=== PATIENT | male | born 1945 | race Caucasian/White ===

== ENCOUNTER 2018-10-25 18:32 | Inpatient (IN) | payer OTHER ==
[~2018-10-25] VITALS: Ht 165 cm; Wt 76.7 kg
[2018-10-25 18:38] VITALS: BP 139/85
--- NOTE | 2018-10-25 19:17 | NUR ---
PT IS WANDERING, UP IN ROOM, CLOTHES REMOVED, AND LOCKED UP, SITTER WITH PT, CONCERNED ABOUT POSSIBILITY OF FLIGHT RISK
[2018-10-25 19:20] LABS: URINE BILIRUBIN NEGATIVE (Negative); URINE BLOOD NEGATIVE (Negative); URINE CLARITY CLEAR; URINE COLOR YELLOW; URINE GLUCOSE-RANDOM* NEGATIVE (Negative); URINE KETONES NEGATIVE (Negative); URINE LEUKOCYTES-REFLEX NEGATIVE (Negative); URINE NITRITE-REFLEX NEGATIVE (Negative); URINE PROTEIN (DIPSTICK) NEGATIVE (Negative); URINE SPECIFIC GRAVITY 1.025 (1.005-1.035); URINE UROBILINOGEN 0.2 E.U./dl (0.2-1.0)
[2018-10-25 19:35] LABS: AMP/METHAMP Negative (Negative); BARBITURATES Negative (Negative); BENZODIAZEPINES POSITIVE (Negative); COCAINE Negative (Negative); METHADONE Negative (Negative); OPIATES Negative (Negative); PCP Negative (Negative)
[2018-10-25 20:10] LABS: BASOPHILS 0.7 % (0.0-2.0); EOSINOPHILS 0.5 % (0.0-3.0); HEMATOCRIT 42.3 % (42.0-52.0); HEMOGLOBIN 14.3 gm/dL (14.0-18.0); LYMPHOCYTES 16.3 % (24.0-44.0); MCH 28.4 pg (26.0-34.0); MCHC 33.7 g/dL (28.0-37.0); MCV 84.1 fL (80.0-100.0); MONOCYTES 7.5 % (1.0-8.0); PLATELET COUNT 177 thou/uL (150-400); RBC 5.04 mil/uL (4.50-6.00); RDW 15.8 % (10.5-14.5); WBC 10.7 thou/uL (4.0-11.0)
[2018-10-25 20:20] LABS: ANION GAP 9 mmol/L (7-16); BUN 23 mg/dL (7-18); CALCIUM 8.9 mg/dL (8.5-10.1); CHLORIDE 101 mmol/L (98-107); CO2 26 mmol/L (21-32); CREATININE 1.2 mg/dL (0.7-1.3); GLUCOSE 104 mg/dL (74-106); POTASSIUM 4.2 mmol/L (3.5-5.1); SODIUM 136 mmol/L (136-145)
[2018-10-25 20:29] LABS: ALBUMIN 3.4 g/dL (3.4-5.0); SGOT 20 U/L (15-37); SGPT 21 U/L (30-65); TOTAL BILIRUBIN 0.5 mg/dL (<0.1-1.0); TOTAL PROTEIN 7.7 g/dL (6.4-8.2); TROPONIN-I <0.06 ng/mL (<0.06)
[2018-10-25] MEDS ORDERED: XARELTO10 MG PO (20:44)
[2018-10-25] MEDS ORDERED: OLANZAPINE2.5 MG PO (20:44)
[2018-10-25] MEDS ORDERED: ZOLOFT50 MG PO (20:45)
--- NOTE | 2018-10-26 08:31 | EKG ---
[place] [address] [facility] [place] [address] ELECTROCARDIOGRAM REPORT Name: KIRKPATRICK,AUGUSTUS Room #: [facility] [id number] ������������������ Admission: 10/25/18 ������������������ Attend Phys: Discharge: ������������������ Date of : 43 Report #: [id number] ����������������������������������������������������������������� [id number] THIS REPORT FOR: //name// [facility] ED Test Date: 2018-10-25 Test Time: 19:33:19 Pat Name: AUGUSTUS KIRKPATRICK Department: Room: Gender: M Team Automobile Assembler: rashad : 1945 Requested By: Francie Lozano Order Number: [id number] MD: Daquan Booth Measurements Intervals [place] Rate: 69 P: 58 MT: 183 QRS: 12 QRSD: 95 T: 96 QT: 436 QTc: 467 Interpretive Statements Sinus rhythm Probable left atrial enlargement Borderline repolarization abnormality Minimal ST elevation, inferior leads No previous ECG available for comparison Electronically Signed On 10-26-2018 8:31:13 CDT by Daquan Booth [email or web address] ��������������������������������������������� <ELECTRONICALLY SIGNED> ���������������������������������������� By: Daquan Booth MD ��������������������������������������������� 10/26/18 0831 1932 32 Daquan Booth MD /CELE
[2018-10-26] MEDS ORDERED: XANAX 0.25 MG0.25 MG PO (10:59)
[2018-10-26] MEDS ORDERED: FLOMAX0.4 MG PO (11:00)
[2018-10-26] MEDS ORDERED: COLACE100 MG PO (11:00)
[2018-10-26] MEDS ORDERED: TRAZODONE HCL50 MG PO (11:01)
[2018-10-26] MEDS ORDERED: TYLENOL325 MG PO (11:03)
[2018-10-26] MEDS ORDERED: CALMOSEPTINE O3.5 GM TOP (11:05)
[2018-10-26] MEDS ORDERED: ZYPREXA2.5 MG PO (11:06)
[2018-10-26] MEDS ORDERED: HYDROXYZINE HCL25 M2 PO (11:07)
[2018-10-26 12:17] VITALS: BP 147/52
[2018-10-26] MEDS ORDERED: NYSTATIN15 G3 TOP (12:55)
[2018-10-26 14:22] VITALS: BP 180/85
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
[2018-10-26 19:33] VITALS: BP 125/70
[2018-10-26 19:48] VITALS: BP 98/77
--- NOTE | 2018-10-27 02:23 | NUR ---
QUIET AND COOPERATIVE FOR CARE, RESTED GOOD, WOKE UP AT ONE POINT AND FOUND KNEELING, SAID HE IS PRAYING, ABLE TO ASSIST BACK TO BED, TOOK MEDS WITH NO ISSUES, UP ADLIB, GAIT STEADY, NO SOB NOTED, VOIDING, MONITORED.
[2018-10-27 07:30] VITALS: BP 97/56
--- NOTE | 2018-10-27 07:50 | NUR ---
PT UP IN HALLWAY AND WANTED ANALYTIC PROGRAMMER TO THROW AWAY BROWN BAG FROM ROOM. HE SAID YOU BETTER THROW IT AWAY OR ELSE. PT WAS EASILY DIRECTED TO DINNING ROOM.
[2018-10-27 10:34] VITALS: BP 97/56
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
[2018-10-27 14:39] VITALS: BP 97/56
--- NOTE | 2018-10-27 16:00 | NUR ---
NOTICED PT IS EXIT SEEKING. CHECKING DOORS ON WEST SIDE AND LEERKING AROUND HALLS.
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
[2018-10-27 19:53] VITALS: BP 141/63
--- NOTE | 2018-10-27 22:30 | NUR ---
ASSUMED CARE OF THE PT AT 1915PM. THE PT WAS UP WALKING AROUND THE HALLWAY WHEN THIS COUNTY ATTORNEY CAME ON DUTY. HE TOOK HIS MEDICATIONS WITHOUT ANY DIFFICULTY. DENIES ANXIETY AND DEPRESSION. DENIES RACING THOUGHTS AND NIGHTMARES. REMAINS ON 12 MINUTE CHECKS FOR HIS SAFETY.
--- NOTE | 2018-10-28 04:01 | NUR ---
THE PT WOKE UP AND WALKED UP AND DOWN THE HALLWAY THIS MORNING. HE TRIED TO GO TO THE BATHROOM, HE WAS FINALLY ABLE TO VOID AFTER TRYING 3 TIMES. HE WAS CONFUSED WHEN HE FIRST WOKE UP AND THEN WENT BACK TO BED.
--- NOTE | 2018-10-28 05:58 | NUR ---
THE PT SLEPT 7 HOURS LAST NIGHT.
--- NOTE | 2018-10-28 10:38 | NUR ---
GEOVANNA called in left a voicemail for pt son Filippo concerning the psychosocoial assessment. GEOVANNA provided contact information, and requested a phone at his earliest convienence.
--- NOTE | 2018-10-28 12:14 | NUR ---
PATIENT CALM AND AGREEABLE. STATED UNDERSTANDS HAS TEMPER AND REALIZES NEEDS TO CONTROL - FEELS MUCH BETTER - STATES MEDICATIONS AND GROUPS HAS BEEN HELPFUL. HAD BEEN UTILIZING BATHROOM OFTEN - VERY CONFUSED - NEEDS REDIRECTION OFTEN. DENIES ANY S/I - NEEDS TO BE REMINDED ABOUT USE OF WALKER - WANDERS AWAY FROM IT OFTEN. CURRENTLY UP ON -
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
[2018-10-28 20:44] VITALS: BP 155/88
[2018-10-28 22:42] VITALS: BP 155/88
[2018-10-28 22:46] VITALS: BP 155/88
--- NOTE | 2018-10-29 03:28 | NUR ---
PT RESTLESS,PACING EARLY IN EVENING. INTERACTING WITH SELECTED PEERS. MEMORY IMPAIRED HE HAS TROUBLE WITH EVEN SIMPLE REDIRECTION. TESTING LIMITS. STATED SEVERAL TIMES THAT HE WAS NOT STAYING,AND "YOU CAN'T KEEP ME HERE". ADVISED THAT IF HE BEHAVES APPROPRIATLY HE WOULD NOT NEED TO STAY LONG. UNABLE TO UNDERSTAND OR REMEMBER WHAT BEHAVIOR GOT HIM ADMITTED. ASKING PERIODICALLY TO WHERE HIS IS. EVENTUALLY SETTLED AND WENT TO ROOM AT 2300. SLEEPING AT THIS TIME.
[2018-10-29 07:50] VITALS: BP 158/84
[2018-10-29 15:35] VITALS: BP 158/54
--- NOTE | 2018-10-29 15:54 | NUR ---
ASSUMED PATIENT CARE AT 0700. PATIENT UP FOR BREAKKFAST, ATE 100%; ALSO ATE 100% OF LUNCH. AT TIMES, AMBULATES WITHOUT WALKER. FORGETFUL, CANNOT REMEMBER THAT HE IS SUPPOSED TO USE AT ALL TIMES WHEN AMBULATING . OCCASSIONALLY ATTEMPTS TO GO INTO OTHER PATIENTS ROOMS. NO NEW ORDERS THIS SHIFT. LABILE MOOD, NO BEHAVIOR ISSUES TO DATE THIS SHIFT, CALM AFFECT. CONTINUE TO MONITOR.
[2018-10-29 19:26] VITALS: BP 160/75
--- NOTE | 2018-10-30 02:19 | NUR ---
VISIBLE IN DAYROOM UPON INITAL ASSESSMENT THIS PM-SITTING QUIETLY WITH PEERS AND APPEARS TO BE WATCHING TV-LITTLE NOTED INTERACTION WITH STAFF OR PEERS-NEUTRAL AFFECT-WILL OCCASSIONALY GET UP AND WANDERING IN HALLWAYS-PUSHING ON EXIT DOORS-WHEN REDIRECTED STATES "I NEED TO BE GOING HOME FOR THE NIGHT" DOES REDIRECT WITH VERBAL PROMPTS-REORIENTATION BUT WITHIN 10-15 MINUTES WILL AGAIN GO TO EXIT DOOR STATING HE NEEDED TO LEAVE-COOPERATIVE WITH HS MEDS AND ASSESSMENT-DENIES C/O PAIN OR DISCOMFORT- DESCRIBES OVERALL MOOD " A LITTLE UPSET BUT I WILL BE OK ONCE I GET HOME" GAIT APPEARS STEADY WITHOUT ASSISTIVE DEVICES-DID GO TO ROOM AND COMPLETE HS CARES WITH VERBAL QUEING/SUPERVISION AT APPROX 2145.
[2018-10-30 08:00] VITALS: BP 180/89
--- NOTE | 2018-10-30 08:08 | NUR ---
PT GIVEN AM MEDS. NOTICED PT CHEEKING MEDS AND SPITTING OUT PILLS AND PLACING BETWEEN COUCH SEAMS. PT THEN SWALLOWED MEDS WITH NURSE STAND-BY. KEEPS TO SELF. AMBULATES WITH STEADY GAIT WITHOUT WALKER.
[2018-10-30 10:05] VITALS: BP 180/89
--- NOTE | 2018-10-30 13:24 | NUR ---
PT UP CHECKING LOCKED DOORS. UP WONDERING AROUND.
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
--- NOTE | 2018-10-30 14:45 | NUR ---
PT DIDN'T WANT TO GO TO GROUP. PT UP WALKING AROUND IN [place] AND INTO OTHER PT ROOMS. NOTICED HE HAD ON A PAIR OF SHOES THAT WAS NOT HIS AND TAKING MEMBRENO OUT OF ROOMS.
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
--- NOTE | 2018-10-30 18:05 | NUR ---
ADM ZYPREXA 5MG PO FOR AGGITATION. PT TOOK MED WITH WATER, DIDN'T HIDE MED IN MOUTH.
[2018-10-30 20:30] VITALS: BP 119/74
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
--- NOTE | 2018-10-31 10:22 | NUR ---
ASSUMED PATIENT CARE AT 0700. PATIENT LYING IN BED AT THAT TIME. UP FOR BREAKFAST. HOWEVER, PATIENT WOULD NOT PUT PAJAMA BOTTOMS ON, AND REFUSED TO LET THIS NURSE HELP HIM DO SO. SAID THAT HE WOULD DO IT HIMSELF. HE CAME TO THE D.R. WITH T-SHIRT ON AND ONLY BRIEFS ON HIS BOTTOM. REFUSED TO GO TO HIS ROOM TO FINISH GETTING DRESSED. FLAT AFFECT; CONFUSED MOOD AND AT TIMES VERBALLY ABUSIVE, EVIDENCED BY SPEAKING IN A BELLIGERENT TONE OF VOICE TO STAFF.
--- NOTE | 2018-10-31 12:24 | NUR ---
Date of Admission: 10/26/18 Date of Activity Therapy Assessment:10/29/18 Activity Goal: 1 group per day Initial Goal: Develop and state at least two positive coping skills to aid in frustration tolerance and impulse control. Weekly progress towards goal: On track Group participation level: Moderate Behaviors observed:Pt shows aggitation, at times. Redirection is needed. Pt shows appropraite social skills during groups, but struggles with social skills in the [place]. Pt has been seen making threats and raising his vocie towards peers. Plan: No change towards goal
[2018-10-31 20:30] VITALS: BP 124/75
--- NOTE | 2018-11-01 01:56 | NUR ---
SITTING IN DAYROOM UPON INITIAL ASSESSMENT THIS PM- RELAXED FACIAL EXPRESSION AND BODY LANGUAGE-RESPONDS TO GREETING FROM STAFF [id number]-EVSMLG COMPLAINTS OR CONCERNS STATING HE FEELS "PRETTY GOOD" GAIT IS NOTED TO BE STEADY WITHOUT ASSISTIVE DEVICES. DID GET UP X 1 AND WANDERED IN HALLWAY-CHECKED EXIT DOOR X 1 BUT DID NOT ENTER PEERS ROOMS PREVIOUS PM. ORIENTED TO PERSON ONLY-RESPONDING THAT HE BELIEVES HE IS IN "THAT OFFICE BUILDING" DENIES C/O PAIN/DISCOMFORT. AFFECT CONSTRICTED -GENERAL MOOD CALM WITH SIGNIFICANT IMPROVEMENT IN AGITATION/RESTLESSNESS FROM LAST PM. WAS RESISTIVE WITH TAKING HS MEDICATIONS-PUSHING THE PILL CUP AWAY INITALLY STATING "THESE ARN'T MINE I THINK THEY ARE YOURS"DID PUT THEM IN MOUTH WITH COAXING,CUEING AND APPEARED TO SWALLOW-UPON MOUTH CHECK IS NOTED TO HAVE 3 DEPAKOTE TABS UNDER TONGUE STATING "I LIKE TO SUCK ON THEM" AGAIN APPEARED TO SWALLOW BUT WHEN RN WALKED AWAY OBSERVED TO SPIT THEM OUT IN CUP- DISSOLVED IN H20 AND READMINISTERED
[2018-11-01 07:35] VITALS: BP 159/79
[2018-11-01 19:54] VITALS: BP 100/60
[2018-11-02 00:47] VITALS: BP 100/60
--- NOTE | 2018-11-02 03:07 | NUR ---
PT IN BED AT [facility] OF SHIFT, BUT CAME OUT TO DAYROOM FOR SNACKS AND TO WATCH BASKETBALL GAME. FORGETFUL BUT REDIRECTABLE. COOPERATIVE WITH TAKEING MEDS IN CUSTARD, AND SLEPT WELL TO THIS POINT.
[2018-11-02 09:30] VITALS: BP 118/80
--- NOTE | 2018-11-02 09:30 | NUR ---
PT UP IN W/C THIS AM. NOT WALKING AROUND THIS AM. DENIES ANY PAIN. DIDN'T HAVE A GOAL OR CONCERNS TODAY. TOOK MEDS IN PUDDING, AND ABLE TO SWALLOW CAPSULES. NO SIGNS OF AGGRESSIVE BEHAVIOR.
--- NOTE | 2018-11-02 12:15 | NUR ---
PT HAS BEEN IN WHEELCHAIR IN THE TIME TODAY. NO AGGRESSION BEHAVIOR TODAY. IS ABLE TO TRANSFER FROM W/C TO CHAIR.
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
[2018-11-02 19:59] VITALS: BP 153/84
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
--- NOTE | 2018-11-03 00:50 | NUR ---
Pt awakened and asked for drink and is walking hallway.
--- NOTE | 2018-11-03 02:17 | NUR ---
Pt did return to bed at 0200.
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
[2018-11-03 12:08] VITALS: BP 169/69
[2018-11-03 15:14] VITALS: BP 169/69
--- NOTE | 2018-11-03 15:14 | NUR ---
ASSUMED CARE AT 0715 TODAY. HE CONTINUES TO BE EXTREMELY CONFUSED. HE IS WANDERING THE HALLS GOING FROM ROOM TO ROOM TRYING TO ENTER THE ROOM. HE CONTINUES TO NEED MUCH REDIRECTION AND ATTENTION OF STAFF. HE SEEMS TO HAVE SOME AVH EVIDENCED BY HIS VERBALIZATIONS STATING THE ONE OF THE PT'S IS HIS AND HE HAS BEEN LOOKING FOR HER FOR SOME TIME. ALL HIS MEDICATIONS WERE EITHER CRUSHED OR SPRINKLES IN APPLE SAUCE. HE TOOK THE MEDICATIONS WITHOUT PROBLEMS NOTED. HE WAS NOTED TO BE IN A W/C EALIER IN THE DAY AND AMBULATORY THIS AFTERNOON. HE HAS NOT ATTENDED ANY GROUPS TODAY. THE SW AND RT WANTED TO ENGAGE HIM IN CARDS BUT HE DECLINED.
[2018-11-03 19:27] VITALS: BP 130/65
--- NOTE | 2018-11-04 05:58 | NUR ---
QUIET LAST NOC AND STAYED IN THE TV ROOM FOR A WHILE, WATCHED TV AND HAD A SNACK, TOOK MEDS WITH NO DIFFICULTY. RESTED GOOD IN BED, NO BM NOTED, CONTINUE WITH ROUNDING ORDERED, MONITORED.
[2018-11-04 08:00] VITALS: BP 135/85
--- NOTE | 2018-11-04 08:44 | NUR ---
Patient Name: AUGUSTUS KIRKPATRICK Admission Date: 10/26/18 DISCHARGE PLAN: Pt will be discharging to [facility]. Care Assessment: Pt was assessed by Dr. 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 Level II Assessment: None Transportation: Pt will be transported by [facility]. Special Instructions/Notes: Pt will need a memory care unit or a wanderguard. GEOVANNA spoe with Torres from the facility to provide information of discharge. GEOVANNA stated that pt will be discharging at 11:00am by [facility]. Torres stated that he will notified the nursing staff, and DON that he will be arriving to facility by Noon. DISCHARGE TO FACILITY: Memory Care Unit Facility: [facility] Fax: Address: [address] [place] [address] Contact Name: Torres PCP: SONNY CLAY Doctor Psychiatrist: SONNY CLAY Psychiatrist
[2018-11-04 09:04] VITALS: BP 135/85
[2018-11-04] MEDS ORDERED: FLOMAX0.4 MG PO (09:10)
[2018-11-04] MEDS ORDERED: NIFEDIPINE ER30 M1 PO (09:11)
[2018-11-04] MEDS ORDERED: BENAZEPRIL HCL20 MG PO (09:12)
[2018-11-04] MEDS ORDERED: DEPAKOTE SPRIN125 MG PO (09:12)
[2018-11-04] MEDS ORDERED: ZYPREXA 5 MG TAB5 M1 PO (09:13)
[2018-11-04] MEDS ORDERED: OLANZAPINE ODT5 MG SUBLING (09:13)
--- NOTE | 2018-11-04 09:19 | NUR ---
ASSUMED PT CARE REPORT RECEIVED FROM NURSE. PT IS AOX2 FORGETFUL AND CONFUSED. PT STATES THAT HIS GOAL IS TO GO TO [facility] TODAY AFTER DISCHARGE. PT DENIES SUICIDAL IDEATION. PLAN TO DISCHARGE HIM TODAY. VSS. PT ATE 84% OF BREAKFAST. PT NOW SITTING QUIETLY IN ACTIVITY ROOM NOT ACTIVELY PARTICIPATING IN GROUP THIS AM. AWAITING FOR DISCHARGE. NURSE WILL WORK ON DISCAHRGING PT . WILL CONTINUE TO MONITOR
--- NOTE | 2018-11-04 09:26 | NUR ---
PT INVENTORY OF PERSONAL ITEMS WAS NOT FILLED OUT DURING HIS STAY HERE. THIS NURSE WILL DOCUMENT THE ITEMS PRESENTLY FOUND IN PT STORAGE AT DISCHARGE TIME.
--- NOTE | 2018-11-04 12:55 | NUR ---
PT LEFT UNIT AT 1130 ON A WHEELCHAIR ACCOMPANIED BY TRANSPORTER. DC PAPERS PROVIDED TO TRANSPORTER. WILL CALL [facility] FOR REPORT
--- NOTE | 2018-11-05 09:28 | D ---
[facility] [place] [address] DISCHARGE SUMMARY Name: AUGUSTUS KIRKPATRICK Room #: 523B-B DIS IN M.R.#: [id number] Admission: 10/26/18 ������������������ Attend Phys: Augustus Greer DO Discharge: 11/04/18 ������������������ Date of : 43 Report #: [id number] THIS REPORT FOR: //name// CC: Augustus Greer Darwin Akkulugari DATE OF SERVICE: 11/04/2018 INPATIENT PSYCHIATRIC DISCHARGE SUMMARY ATTENDING: Augustus Greer DO HR MANAGER: At the time of discharge, Augustus Martinez MD DISCHARGE DIAGNOSIS: Major neurocognitive disorder, likely secondary to Alzheimer disease with behavioral disturbance, improved. Medical comorbidities include hypertension, stable, urinary retention, on Flomax and well controlled. The patient had come in with a questionable hypercoagulable state and was on Xarelto, this was discontinued due to his fall risk, dementia and unknown purpose to his DPOA. The patient was a DNR during this admission. DISCHARGE DIET: As follows, mechanical altered chopped with pills given in applesauce. Patient will be discharging to [facility] and rehabilitation. He is in the [facility] unit there. The patient will need ongoing memory care, facility was given a note, and social work and nursing sign out to person Torres there. DISCHARGE LABORATORY DATA: Depakote level day of admission at 6:15, which was 72, which was desirable. Vital signs day of admission, temperature 36.2, pulse 89, respirations 16, BP 135/85, O2 sat 93% on room air. DISCHARGE MEDICATIONS: Tamsulosin 0.4 mg p.o. b.i.d. for BPH, nifedipine 30 mg ER every 24 hours 30 mg p.o. daily, recommend holding if BP under 120; benazepril 20 mg p.o. daily that is lisinopril and hold if systolic BP under 120, Depakote Sprinkles 500 mg p.o. b.i.d. given in applesauce, mood stabilization; olanzapine 5 mg sublingual twice per day. This is the ODT tab for mood stabilization and olanzapine 5 mg p.o. q.6 hours p.r.n. for anxiety, agitation. Continue Colace 100 mg p.o. b.i.d. for bowel motility. Hold if diarrhea. Trazodone 25 mg p.o. at bedtime for sleep. Rivaroxaban that was discontinued and his olanzapine dose was titrated from initially 2.5 p.o. b.i.d. REASON FOR ADMISSION: Combativeness, assaultiveness, nursing facility. [address] [address] DISCHARGE SUMMARY Name: AUGUSTUS KIRKPATRICK Room #: 523B-B [facility] IN M.R.#: [id number] Admission: 10/26/18 ������������������ Attend Phys: Augustus Greer DO Discharge: 11/04/18 ������������������ Date of : 43 Report #: [id number] HOSPITAL COURSE: The patient was admitted to Geriatric Psychiatry Unit. The patient's DPOA was called in for meeting early on. He was in agreement with efforts to get the patient on a routine medication regimen that would lessen the likelihood of assaultiveness. The patient tended to be irritable, grumpy throughout the admission. At times, he would curse. However, after the first couple of days there were no intramuscular injections given I was aware of. The patient attended some groups, not others. At the time of discharge, the patient was in stable condition. He was ambulatory, but did have an increased fall risk. He was not cooperative with any physical therapy efforts. MENTAL STATUS EXAMINATION: This is a well-developed, disheveled, underweight appearing male, apparently stated age. Attention limited and concentration limited. Speech is normal rate. Thought process linear limited. Thought content relative poverty of thought. The patient still had poor insight that he is in the Psychiatric Unit. No psychomotor agitation, no psychomotor retardation. Mood and affect were congruent, constricted. Denied auditory, visual or tactile hallucination. Denied suicidal intent and plan. Denied homicide intent or plan. Memory noted to be impaired. Insight limited. Judgmental limited. Fund of knowledge below average. Prognosis for this patient is guarded to poor given the degree of his dementia, his increased fall risk. ��������������������������������������������� <ELECTRONICALLY SIGNED> ���������������������������������������� By: Augustus Greer DO ��������������������������������������������� 11/05/18 [id number] Augustus Greer DO /nt
== END 2018-11-04 11:30 | DRG 57 ==
LOC: ER 18:32 → SBH 10-26 11:41 → EROBS 10-26 11:41 → SBH 10-26 12:18
PROVIDERS: Student in an Organized Health Care Education/Training Program; ADMIT Psychiatry & Neurology Psychiatry
DX: G30.9 Alzheimer's disease, unspecified (principal); D68.59 Other primary thrombophilia; F02.81 Dementia in other diseases classified elsewhere, unspecified severity, with behavioral disturbance; R45.1 Restlessness and agitation; I10 Essential (primary) hypertension; Z66 Do not resuscitate; I16.0 Hypertensive urgency; R33.9 Retention of urine, unspecified; F02.80 Dementia in other diseases classified elsewhere, unspecified severity, without behavioral disturbance, psychotic disturbance, mood disturbance, and anxiety; Z79.899 Other long term (current) drug therapy
CPT/HCPCS: 10880